=== PATIENT | female | born 1995 | race Caucasian/White ===

== ENCOUNTER 2018-03-06 01:12 | Emergency (ER) | payer OTHER ==
--- NOTE | 2018-03-06 01:44 | ER Document Report ---
ED General - General Chief Complaint: Chest Wall Pain Stated Complaint: CHEST PAIN/DIZZINESS Time Seen by Provider: 03/06/18 01:42 Notes: Patient is 23-year-old female presents with complaint of chest pains been ongoing for several days. She says it is in her epigastric region and radiates up into her chest. She was seen at [facility] yesterday and they performed blood work as well as x-ray and EKG and said things are normal on her blood work but said that she needs follow-up with the GI doctors she may need endoscopy as she may have ulcers. She has an appointment with this physician on Thursday. States she came here but she want to see if there is any further workup that needs to be done. She does admit that at times she gets dizzy. She does not feel as if her heart is racing. She has not been vomiting. She has not had fevers. She has no family history of heart disease at a young age. She has been healthy her entire life and does not take any medications. No recent leg pain or leg swelling. Pain is not made worse with eating. Is not made worse with deep breathing. Is not made worse with changing positions. Pain does not radiate to the back or down the arms or up the neck. TRAVEL OUTSIDE OF THE [place] IN LAST 30 DAYS: No Past Medical History - Social History Smoking Status: Never Smoker Chew tobacco use (# tins/day): No Frequency of alcohol use: None Drug Abuse: None Family History: Reviewed & Not Pertinent Patient has suicidal ideation: No Patient has homicidal ideation: No Renal/ Medical History: Denies: Hx Peritoneal Dialysis Review of Systems - Review of Systems Notes: My Normal Review Basic REVIEW OF SYSTEMS: CONSTITUTIONAL : Denies fever, chills, or sweats. Denies recent illness. EENT: Denies eye, ear, throat, or mouth pain or symptoms. Denies nasal or sinus congestion. CARDIOVASCULAR: Chest pain RESPIRATORY: Denies cough, cold, or chest congestion. Denies shortness of breath, difficulty breathing, or wheezing. GASTROINTESTINAL: Gastric abdominal pain. Denies nausea, vomiting, or diarrhea. Denies constipation. Last BM: MUSCULOSKELETAL: Denies neck or back pain or joint pain or swelling. SKIN: Denies rash or skin lesions. NEUROLOGICAL: Denies altered mental status or loss of consciousness. Denies headache. Denies weakness or paralysis or loss of use of either side. Denies problems with gait or speech. Denies sensory or motor loss. ALL OTHER SYSTEMS REVIEWED AND NEGATIVE. Physical Exam - Vital signs Vitals: Temp Pulse Resp BP Pulse Ox 98.4 F 64 14 113/74 100 03/06/18 01:20 03/06/18 01:20 03/06/18 01:20 03/06/18 01:20 03/06/18 01:20 - Notes Notes: General Appearance: Well nourished, alert, cooperative, no acute distress, moderate obvious discomfort. Vitals: reviewed, See vital signs table. Head: no swelling or tenderness to the head Eyes: PERRL, EOMI, Conjuctiva clear Mouth: No decreasd moisture Throat: No tonsillar inflammation, No airway obstruction, Lungs: No wheezing, No rales, No rhonci, No accessory muscle use, good air exchange bilaterally. Heart: Normal rate, Regular rythm, No murmur, no rub Chest wall: She does have some pain to production over palpation of lower substernal area. Abdomen: Normal BS, soft, No rigidity, epigastric abdominal tenderness to palpation, No guarding, no rebound, no abdominal masses, no organomegaly Extremities: good pulses in all extremities, no swelling or tenderness in the extremities, no edema. Skin: warm, dry, appropriate color, no rash Neuro: speech clear, oriented x 3, normal affect, responds appropriately to questions. Course - Re-evaluation Re-evalutation: 03/06/18 06:27 Patient is discharged with medications to help treat potential of acid reflux. Informed patient I suspect that this is either a gastritis or acid reflux type picture versus possible muscular skeletal chest wall pain. I informed it is difficult to tell which one it is. Kali did not really help. Patient was discharged she stood up and then felt dizzy and then most passed out. I went back and interviewed the patient again. She says she felt as of the room spinning and this happened several times her last couple days. She does not feel as if her heart is beating funny during these episodes. Patient is very tearful on her exam when she first got here and still continues to be somewhat emotional. She seems fatigued. Informed her that I recommend that she stays a bit longer and let me placed on a air sampling and monitoring and give her IV fluids and check some blood work as well as give her meclizine for dizziness. Patient refuses to stay any longer and says she wants to leave. I informed her that I cannot tell exactly why she is having dizziness or why she almost passed out without further treatment. Patient and her boyfriend both want to leave and she request to be discharged. Patient is awake alert and able to make her own decisions. She did allow me to give her a dose of meclizine and prescribe her meclizine. Informed her she should return to ER immediately if she has episode of syncope or feels that she is worsening or severe pain. Patient agrees with plan and will be discharged home as she requests. Dictation of this chart was performed using voice recognition software; therefore, there may be some unintended grammatical errors. - Vital Signs Vital signs: Temp Pulse Resp BP Pulse Ox 98.3 F 94 20 118/80 100 03/06/18 02:51 03/06/18 02:51 03/06/18 02:51 03/06/18 02:51 03/06/18 02:51 - EKG Interpretation by Me Additional EKG results interpreted by me: 03/06/18 01:43 EKG is reviewed and interpreted by me. EKG shows normal sinus rhythm with a rate of [address] segment elevation or depression. Some small T waves in the anterior septal leads. RI interval, QRS duration, QTc intervals are within normal range. No old EKG available for comparison. Discharge - Discharge Clinical Impression: Chest pain Qualifiers: Chest pain type: unspecified Qualified Code(s): R07.9 - Chest pain, unspecified Condition: Good Disposition: HOME, SELF-CARE Additional Instructions: Please take the medications as prescribed. Please take Tylenol and avoid other medications such as Advil, Naprosyn, Aleve, Motrin. Please return to the ER immediately if you develop fevers, difficulty breathing, vomiting,or feel that you are worsening. Please follow up with your doctor on next week as scheduled and discuss with them about having and endoscopy performed. I have added a medicine called Meclizine. This helps control dizziness. We want you to stay for more treatment since you almost passed out, but we respect your right to want to leave. Please have a low threshold to return to the ER if you feel that you are worsening. Prescriptions: Meclizine HCl 25 mg PO BID #14 tablet Omeprazole Magnesium [Prilosec Otc] 20 mg PO DAILY #30 tablet. Ondansetron [Zofran Odt 4 mg Tablet] 1 tab PO Q4H PRN #15 tab.rapdis PRN Reason: For Nausea/Vomiting Sucralfate [Carafate Susp 1 Gm/10 Ml Udcup] 1 gm PO ACHS 10 Days udc Forms: Return to Work
[2018-03-06] MEDS ORDERED: METOCLOPRAMIDE HCL ORAL SOLN 10 MG/10 ML UDCUP PO ONE (01:49)
[2018-03-06] MEDS ORDERED: MAG HYDROX/AL HYDROX/SIMETH SUSP 30 ML UDCUP PO ONE (01:49)
[2018-03-06] MEDS ORDERED: LIDOCAINE 2% VISCOUS SOLN 20 ML UDCUP PO ONE (01:49)
--- NOTE | 2018-03-06 01:52 | ER Document Report ---
ED General - General Chief Complaint: Chest Wall Pain Stated Complaint: CHEST PAIN/DIZZINESS Time Seen by Provider: 03/06/18 01:42 TRAVEL OUTSIDE OF THE [place] IN LAST 30 DAYS: No Past Medical History - Social History Smoking Status: Never Smoker Chew tobacco use (# tins/day): No Frequency of alcohol use: None Drug Abuse: None Patient has suicidal ideation: No Patient has homicidal ideation: No Renal/ Medical History: Denies: Hx Peritoneal Dialysis Physical Exam - Vital signs Vitals: Temp Pulse Resp BP Pulse Ox 98.4 F 64 14 113/74 100 03/06/18 01:20 03/06/18 01:20 03/06/18 01:20 03/06/18 01:20 03/06/18 01:20 Course - Vital Signs Vital signs: Temp Pulse Resp BP Pulse Ox 98.4 F 64 14 113/74 100 03/06/18 01:20 03/06/18 01:20 03/06/18 01:20 03/06/18 01:20 03/06/18 01:20
[2018-03-06] MEDS ORDERED: ONDANSETRON ODT 4 MG TAB (6 TAB/ER DISP) PO PRN (02:35)
[2018-03-06] MEDS ORDERED: MECLIZINE HCL 25 MG TABLET PO ONE (03:08)
[2018-03-06 03:16] VITALS: BP 118/80
== END 2018-03-06 03:51 | disposition home or self-care (01) ==
LOC: ER 01:12
DX: R07.9 Chest pain, unspecified (principal); R42 Dizziness and giddiness
CPT/HCPCS: 99284; J3490